=== PATIENT | female | born 1985 | race Caucasian/White ===

== ENCOUNTER 2017-07-13 13:52 | Emergency (ER) | payer SELFPAY ==
[2017-07-13 14:07] VITALS: BP 137/86; PULSE 70; RESP 18; TEMP 98.7
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
--- NOTE | 2017-07-13 14:23 | XR ---
EXAMINATION TYPE: XR hand complete RT DATE OF EXAM: 07/13/2017 COMPARISON: NONE HISTORY: 32-year-old female pain after fall TECHNIQUE: 3 views FINDINGS: There is mildly angulated, nondisplaced fracture of the fifth proximal phalangeal metaphysis. There i s mild ulnar dorsal angulation. No additional acute fracture or dislocation. IMPRESSION: Nondisplaced but mildly angulated fracture near the fifth proximal phalangeal base.
== END 2017-07-13 14:36 | disposition home or self-care (01) ==
LOC: EC 13:52
DX: S62.646A Nondisplaced fracture of proximal phalanx of right little finger, initial encounter for closed fracture (principal); S60.041A Contusion of right ring finger without damage to nail, initial encounter; V86.09XA Driver of other special all-terrain or other off-road motor vehicle injured in traffic accident, initial encounter; Y92.410 Unspecified street and highway as the place of occurrence of the external cause
CPT/HCPCS: 99283

== ENCOUNTER → 2017-12-21 | Outpatient (CLI) | payer OTHER ==
[2017-12-21 09:50] LABS: Basophils # (A) 0.1 k/uL (0-0.2); Basophils % (A) 1 %; Eosinophils # (A) 0.3 k/uL (0-0.7); Eosinophils % (A) 5 %; HCT 44.4 % (34.0-46.0); HGB 14.4 gm/dL (11.4-16.0); Lymphocytes % (A) 41 %; MCH 30.7 pg (25.0-35.0); MCHC 32.5 g/dL (31.0-37.0); MCV 94.5 fL (80.0-100.0); Mean Platelet Volume 6.2; Monocytes # (A) 0.3 k/uL (0-1.0); Monocytes % (A) 7 %; Neutrophils % (A) 42 %; Platelet Count 299 k/uL (150-450); RDW 12.1 % (11.5-15.5); WBC 4.9 k/uL (3.8-10.6)
[2017-12-21 10:06] LABS: ALT 28 U/L (9-52); AST 27 U/L (14-36); Albumin 4.6 g/dL (3.5-5.0); Alkaline Phosphatase 86 U/L (38-126); Anion Gap 11 mmol/L; Blood Urea Nitrogen 19 mg/dL (7-17); Calcium 9.9 mg/dL (8.4-10.2); Carbon Dioxide 28 mmol/L (22-30); Chloride 104 mmol/L (98-107); Glucose 91 mg/dL (74-99); Potassium 4.6 mmol/L (3.5-5.1); Sodium 143 mmol/L (137-145); Total Bilirubin 0.3 mg/dL (0.2-1.3); Total Protein 8.1 g/dL (6.3-8.2)
[2017-12-21 10:23] LABS: HCG,Quantitative Serum <2.4 mIU/mL
[2017-12-21 17:46] LABS: Iron Saturation 24.7 (12.00-45.00)
== END | disposition home or self-care (01) ==
LOC: LABWHC1 09:19
PROVIDERS: ATTEND Family Medicine
DX: R51 Headache (principal)
CPT/HCPCS: 36415; 80053; 83540; 83550; 84146; 84443; 84702; 85025